=== PATIENT | female | born 1975 | race Caucasian/White ===

== ENCOUNTER 2016-07-12 15:12 | Outpatient (CLI) | payer OTHER ==
--- NOTE | 2016-07-12 15:50 | DIAGNOSTIC IMAGING REPORT ---
PROCEDURE: XR CERVICAL SPINE 4 OR 5 VIEW INDICATION: CERVICAL RADICULOPATHY TECHNIQUE: Five views. COMPARISON: None. FINDINGS: Osseous structures and disc spaces are normal. No evidence of an acute process or fracture. Neural foramina are normal. IMPRESSION: 1. Negative cervical spine.
== END 2016-07-12 23:00 ==
LOC: XR SRH 15:12
DX: M54.12 Radiculopathy, cervical region (principal)